=== PATIENT | male | born 1950 | race Caucasian/White ===

== ENCOUNTER 2022-04-26 20:14 | Inpatient (IN) | payer MEDICARE ==
[~2022-04-26] VITALS: Ht 180.3 cm; Wt 94.3 kg
[2022-04-27] VITALS (11 sets, daily range): BP systolic 100–154; BP diastolic 59–96; PULSE 44–84; TEMP 97.7–99
[2022-04-27] MEDS ORDERED: LASIX 20MG TABL20 MG PO (03:13)
[2022-04-27] MEDS ORDERED: CIALIS10 MG PO (03:14)
[2022-04-27] MEDS ORDERED: ATARAX50 MG PO (03:15)
--- NOTE | 2022-04-27 03:15 | NUR ---
PT ADMITTED TO ROOM 343 BY [facility]. PT A&OX4. AND DAUGHTER ARE AT SIDE. VERY SUPPORTIVE. WILL STAY WITH PT TONIGHT. ADMISSION ASSESSMENTS COMPLETED. NPO STATUS. SABINA MAURER HERE. SEE NEW ORDEERS. REVIEWED PLAN OF CARE. PT/ FFAMILY VERBALIZE UNDERSTANDING.
[2022-04-27] MEDS ORDERED: ZOFRAN 4MG T4 MG/TAB PO (03:16)
[2022-04-27] MEDS ORDERED: TOPROL XL 50MG50 MG PO (03:16)
[2022-04-27] MEDS ORDERED: MULTI VITAMINS1 TAB PO (03:16)
[2022-04-27] MEDS ORDERED: SENNA-S 50 MG-81 TAB PO (03:17)
[2022-04-27] MEDS ORDERED: PRILOSEC 20MG20 MG PO (03:17)
[2022-04-27] MEDS ORDERED: ALDACTONE50 MG PO (03:19)
--- NOTE | 2022-04-27 03:50 | NUR ---
NOTIFIED AALLISON ERASTO OF EKG RESUULTS AAFIB. NEW ORDERS NOTED. BANANA BAG 1000CC STARTED SABINA CHAGES DOSE FROM 125CC/HR TO 60CC/HR.
--- NOTE | 2022-04-27 03:50 | NUR ---
INSERTED #[id number] ÁLVAREZ WITH IMMEDIATE RETURN OF JAMAL CLEAR URINE. UA SENT TO LAB.
--- NOTE | 2022-04-27 04:02 | NUR ---
PT FELL ASLEEP. NO DISTRESS. CALL LIGHTT IN REACH. BED ALARRM SET.
[2022-04-27 05:03] LABS: SQUAMOUS EPITHELIAL None Seen /hpf (0-10); URINE BACTERIA None Seen /hpf (NONE SEEN); URINE RBC 0-2 /hpf (0-2)
[2022-04-27 05:06] LABS: COLLECTION METHOD CATHETER; URINE APPEARANCE Hazy (CLEAR/HAZY); URINE BLOOD TRACE-INTACT (NEGATIVE); URINE COLOR Amber (YELLOW); URINE GLUCOSE Negative (NEGATIVE); URINE KETONE Negative (NEGATIVE); URINE NITRATE Negative (NEGATIVE); URINE PROTEIN(semi-quant) Negative (NEGATIVE); URINE UROBILINOGEN 0.2 E.U/dL (0.2-1.0)
[2022-04-27 05:10] LABS: TRICYCLIC ANTIDEPRESS URINE NEGATIVE
--- NOTE | 2022-04-27 06:15 | NUR ---
PT RESTING AT THIS TIME. NO DISTRESS. BANANA BAG CONTINUES AT 60CC/HR THEN WILL HANG D51/2NS AT 50CC PER SABINA MAURER.
[2022-04-27 06:31] LABS: BASO % 0.5 % (0.0-2.0); EOS # 0.1 K/mm3 (0.0-0.7); EOS % 0.9 % (0.0-4.0); GRAN % 75.7 % (42.2-75.2); HEMOGLOBIN 14.3 g/dl (13.5-18.0); LYMPH # 1.1 K/mm3 (1.2-3.4); MEAN CELL VOLUME 100 fl (80.0-100.0); MEAN CORPUSCULAR HEMOGLOBIN 34 pg (27-31); MEAN CORPUSCULAR HGB CONC 34 g/dl (33.0-37.0); MEAN PLATELET VOLUME 10.5 fl (7.4-10.4); MONO # 0.7 K/mm3 (0.1-0.6); MONO % 8.3 % (1.7-9.3); PLATELET COUNT 106 K/mm3 (130-400); RED BLOOD COUNT 4.22 M/mm3 (4.20-5.60)
[2022-04-27 06:45] LABS: INR 1.4 (0.8-3.0); PROTHROMBIN TIME 16.3 SECONDS (9.7-12.8)
[2022-04-27 06:50] LABS: ALBUMIN 3.2 gm/dL (3.4-4.8); BILIRUBIN,TOTAL 4.5 mg/dL (0.2-1.2); CREATININE, serum 1.12 mg/dL (0.72-1.25); MAGNESIUM 1.8 mg/dL (1.6-2.6); POTASSIUM 4.1 mmol/L (3.5-4.5); TOTAL PROTEIN 7.8 gm/dL (6.2-8.1)
--- NOTE | 2022-04-27 09:32 | NUR ---
Pt assessment complete. Pt is laying in bed, he is A/O x4. His breathing is even and unlabored on RA. Pt denies SOB. Pain to R thigh 10/15, prn pain medication administered. Offered patient ice to which he refused. No N/V. Denies hallucinations. IVF infusing without issues. No needs at this time.
--- NOTE | 2022-04-27 12:42 | NUR ---
Initial visit: Pt was resting and content. Pt stated no needs right now. General Sales Manager will follow up as needed.
--- NOTE | 2022-04-27 15:26 | NUR ---
Patient was admitted to the Surgical unit on 05-25-22. Claims Analyst met with patient and his in his room to conduct Care Managment intake and discuss discharge planning. Patient reports that he lives in [place], [place] with his . Patient denies the use of O2 and DME prior to this injury. Patient's PCP is Dr. Vargas in [place], [place]. Patient has RODRIGUEZ. Patient does not have AD at this time. AD paperwork was provided to Patient. SW discussed the potential need for rehab services after discharge. Patient reports that he wants to go through outpatient rehab if it is needed post surgery.
--- NOTE | 2022-04-27 18:52 | NUR ---
Pt had an uneventful day. Intermittent pain, PRN pain medications administered. Pt repositioned to comfortable positions. Gita DD. Not scoring on CIWA. at bedside. Call light within reach.
--- NOTE | 2022-04-27 20:55 | NUR ---
Patient assessed around 2054, head to toe assessment done, see shift assesment, reports pain to his right hip, rated it as 7/10, PRN pain med given, at bedside, denies hallucination, denies further needs, call light and personal items within reach, will continue to monitor.
[2022-04-28] VITALS (18 sets, daily range): BP systolic 95–132; BP diastolic 51–86; PULSE 55–96; TEMP 97.5–98.8
--- NOTE | 2022-04-28 06:26 | NUR ---
Patient had an uneventful night, stayed overnight, will report off to dayshift nurse.
--- NOTE | 2022-04-28 08:00 | NUR ---
PATIENT IS A&O. NOTED IRREGULAR IN THE 60'S ON TELE. SOFT B/P IN THE 90'S & LOW 100'S SYSTOLIC. B/P MEDS HELD. ALL OTHER VSS. PATIENT ON DETOX PROTOCOL DUE TO HX OF ETOH BUT IS NOT CURRENTLY SCORING. PATIENT ALSO HAS HX OF DRUGS, LIVER CIRRHOSIS, PARACENTESIS, A-FIB, DVT & VARICES. NO COMPLAINTS THIS AM. AT BEDSIDE. HEAD TO TOE ASSESSMENT COMPLETE. NPO FOR SURGERY. PATIENT AND WANTING TO TALK TO SURGEON AND WILL SIGN THE CONSENT AFTER TALKING WITH HER. IV FLUIDS INFUSING VIA PUMP INTO LEFT FORARM. ÁLVAREZ TO DD. TEDS AND SCD'S TO RLE. NO OTHER NEEDS AT THIS TIME. CALL LIGHT IN REACH. SURGERY PENDING.
[2022-04-28 09:07] LABS: BASO % 0.4 % (0.0-2.0); EOS # 0.2 K/mm3 (0.0-0.7); GRAN # 7.1 K/mm3 (1.4-6.5); GRAN % 70.4 % (42.2-75.2); HEMATOCRIT 40.5 % (42.0-52.0); HEMOGLOBIN 14.1 g/dl (13.5-18.0); LYMPH # 1.8 K/mm3 (1.2-3.4); LYMPH % 18.1 % (20.0-51.0); MEAN CELL VOLUME 98 fl (80.0-100.0); MEAN CORPUSCULAR HEMOGLOBIN 34 pg (27-31); MEAN CORPUSCULAR HGB CONC 35 g/dl (33.0-37.0); MEAN PLATELET VOLUME 10.2 fl (7.4-10.4); MONO # 0.9 K/mm3 (0.1-0.6); MONO % 8.7 % (1.7-9.3); PLATELET COUNT 114 K/mm3 (130-400); RED BLOOD COUNT 4.13 M/mm3 (4.20-5.60); REDCELL DISTRIBUTION WIDTH-CV 13.2 % (11.5-14.5)
[2022-04-28 09:24] LABS: CALCIUM 8.5 mg/dL (8.4-10.2); CREATININE, serum 1.1 mg/dL (0.72-1.25); POTASSIUM 4.1 mmol/L (3.5-4.5)
[2022-04-28 10:50] LABS: INR 1.4 (0.8-3.0); PROTHROMBIN TIME 16.6 SECONDS (9.7-12.8)
--- NOTE | 2022-04-28 14:30 | NUR ---
PATIENT GOING DOWN TO OR VIA BED. IV FLUIDS VIA GRAVITY. CONSENT ON CHART. PATIENT OFF FLOOR.
--- NOTE | 2022-04-28 20:00 | NUR ---
Patient arrived to the floor at 1920 with PACU nurse Shi, IV to left forearm infusing well, on 2liters of oxygen via nasal prong, dressing to right hip CDI, with abduction pillows in between legs, SCD's on, at bedside, tolerated his clear liquid and he ate jello, denies nausea or vomiting, call light and personal items within reach, will continue to monitor.
--- NOTE | 2022-04-28 23:00 | NUR ---
Patient called out with c/o of right heel pain, repositioned patient at this time and felt relief, denies further needs at this time, at bedside, INT IV at this time, encouraged oral fluids, will continue to monitor.
[2022-04-29] VITALS (11 sets, daily range): BP systolic 105–142; BP diastolic 55–86; PULSE 63–81; TEMP 97.6–98.4
--- NOTE | 2022-04-29 03:29 | NUR ---
Patient reports pain to his right hip, rated it at 7/10, IV morphine given per request, FLORIDALMA's and MARISA's on, ice pack on, will continue to monitor.
--- NOTE | 2022-04-29 04:59 | NUR ---
Patient resting in bed, eyes closed, respirations even and unlabored, looks comfortable.
[2022-04-29 06:32] LABS: BASO % 0.3 % (0.0-2.0); GRAN # 6.3 K/mm3 (1.4-6.5); GRAN % 80.1 % (42.2-75.2); HEMOGLOBIN 12.9 g/dl (13.5-18.0); LYMPH % 12.8 % (20.0-51.0); MEAN CELL VOLUME 98 fl (80.0-100.0); MEAN CORPUSCULAR HEMOGLOBIN 34 pg (27-31); MEAN CORPUSCULAR HGB CONC 35 g/dl (33.0-37.0); MEAN PLATELET VOLUME 11.1 fl (7.4-10.4); MONO # 0.5 K/mm3 (0.1-0.6); MONO % 6.4 % (1.7-9.3); PLATELET COUNT 103 K/mm3 (130-400); RED BLOOD COUNT 3.76 M/mm3 (4.20-5.60); REDCELL DISTRIBUTION WIDTH-CV 12.8 % (11.5-14.5)
[2022-04-29 06:36] LABS: HEMATOCRIT 36.9 % (42.0-52.0)
[2022-04-29 06:42] LABS: INR 1.5 (0.8-3.0); PROTHROMBIN TIME 17.4 SECONDS (9.7-12.8)
[2022-04-29 06:58] LABS: ALBUMIN 2.7 gm/dL (3.4-4.8); BILIRUBIN,TOTAL 4.5 mg/dL (0.2-1.2); CALCIUM 8.8 mg/dL (8.4-10.2); CREATININE, serum 1.12 mg/dL (0.72-1.25); MAGNESIUM 1.7 mg/dL (1.6-2.6); POTASSIUM 4.4 mmol/L (3.5-4.5); TOTAL PROTEIN 7.2 gm/dL (6.2-8.1)
--- NOTE | 2022-04-29 10:35 | NUR ---
PATIENT ALERT AND ORIENTED X4. VSS. PATIENT HERE FOR RIGHT HIP HEMIARTHROPLASTY. AQUACELL TO RIGHT HIP, CDI. PATIENT WBAT TO RIGHT. CIWA PROTOCOL, PATIENT SCORING 0. CALL LIGHT WITHIN REACH.
--- NOTE | 2022-04-29 14:09 | NUR ---
PT recommends SNF. OT recommends post-acute rehab vs home with family assist. SIA met with the patient and his , Laura, to discuss therapy's recommendations. The patient and his state that they have already made alternate arrangements. He states that they live across from [facility] in [place] and the facility provides outpatient therapy. He states that he received outpatient therapy there in the past, after knee surgery. Laura confirms this plan and states that she will contact the facility to set up the appointments. SIA inquired if they have a FWW. The patient and Laura report that they do not. They would like to go ahead and order one through insurance and are okay with getting one from [facility]. SIA contacted and faxed the FWW order to Sean at [facility]. Awaiting delivery of FWW. *Discharge plan: home with and outpatient therapy*
--- NOTE | 2022-04-29 20:23 | NUR ---
Patient doing better, A/O, rates his pain at 2/10, IV to left forearm infusing well, still with weinstein catheter draining well, aquacell dressing to right hip CDI, SCD's and MARISA's on, denies further needs, call light and personal items within reach, will continue to monitor.
[2022-04-30 02:05] VITALS: BP 120/70; PULSE 70
[2022-04-30 03:57] VITALS: BP 121/73; PULSE 56; TEMP 98
[2022-04-30 05:47] VITALS: BP 138/65; PULSE 99
--- NOTE | 2022-04-30 06:32 | NUR ---
Patient had an uneventful night, stayed overnight, had a bm this morning.
[2022-04-30 06:51] LABS: BASO % 0.1 % (0.0-2.0); EOS % 0.4 % (0.0-4.0); GRAN # 8.1 K/mm3 (1.4-6.5); GRAN % 77.4 % (42.2-75.2); HEMOGLOBIN 12.6 g/dl (13.5-18.0); LYMPH # 1.4 K/mm3 (1.2-3.4); LYMPH % 13.4 % (20.0-51.0); MEAN CELL VOLUME 97 fl (80.0-100.0); MEAN CORPUSCULAR HEMOGLOBIN 34 pg (27-31); MEAN CORPUSCULAR HGB CONC 35 g/dl (33.0-37.0); MEAN PLATELET VOLUME 10.4 fl (7.4-10.4); MONO # 0.8 K/mm3 (0.1-0.6); MONO % 8.1 % (1.7-9.3); PLATELET COUNT 135 K/mm3 (130-400); RED BLOOD COUNT 3.73 M/mm3 (4.20-5.60); REDCELL DISTRIBUTION WIDTH-CV 12.9 % (11.5-14.5)
[2022-04-30 06:53] LABS: HEMATOCRIT 36.3 % (42.0-52.0)
[2022-04-30 07:13] LABS: CALCIUM 8.7 mg/dL (8.4-10.2); CREATININE, serum 1.01 mg/dL (0.72-1.25); POTASSIUM 4.3 mmol/L (3.5-4.5)
[2022-04-30 07:50] VITALS: BP 103/74; PULSE 59; TEMP 97.8
--- NOTE | 2022-04-30 08:00 | NUR ---
Pt doing okay this morning. Some pain, but reports it is tolerable. Pt hoping to get to go home today. Pts is at bedside. Pt is doing well with ambulating with walker, standby assist.
[2022-04-30] MEDS ORDERED: OSCAL 500 TAB500 MG PO (09:08)
[2022-04-30] MEDS ORDERED: ASPIRIN 81M81 MG/TA2 PO (09:08)
[2022-04-30] MEDS ORDERED: ROXICODONE 55 MG/TAB PO (09:08)
[2022-04-30] MEDS ORDERED: TOPROL XL 25MG25 MG PO (09:09)
[2022-04-30] MEDS ORDERED: FOLIC ACID 11 MG/TA1 PO (09:09)
[2022-04-30] MEDS ORDERED: THIAMINE 1100 MG/TAB PO (09:09)
[2022-04-30] MEDS ORDERED: VITAMIN C500 MG PO (09:09)
[2022-04-30 10:30] VITALS: BP 142/79; PULSE 74; TEMP 98.2
--- NOTE | 2022-04-30 11:36 | NUR ---
[facility] delivered the FWW to the patient's room. The patient is to discharge back home with his today, 04/30, and outpatient therapy at [facility] in [place]. SIA met with the patiet and his and presented and read the IM form outloud to them. The patient verbalized understanding and agreement to discharge today. He signed the form and declined a copy. No additional needs at this time.
[2022-04-30 12:42] VITALS: BP 120/72; PULSE 54; TEMP 97.7
--- NOTE | 2022-04-30 13:15 | NUR ---
Reviewed discharge instructions with pt and spouse. Reviewed new medications and follow up appointment. They prefer to come back to [place] for follow up ortho appointment. INT removed and pt escorted out
== END 2022-04-30 13:15 | disposition home or self-care (01) | DRG 522 ==
LOC: MEDICAL 20:14 → SURG 04-27 02:51
PROVIDERS: Internal Medicine; Nurse Practitioner Family; Orthopaedic Surgery; Physician Assistant; ADMIT Internal Medicine
PROC: 0SRR0J9 Replacement of Right Hip Joint, Femoral Surface with Synthetic Substitute, Cemented, Open Approach (ICD-10-PCS; principal; 2022-04-28 14:00)
DX: S72.001A Fracture of unspecified part of neck of right femur, initial encounter for closed fracture (principal); N17.9 Acute kidney failure, unspecified; E87.1 Hypo-osmolality and hyponatremia; E87.20 Acidosis, unspecified; I85.00 Esophageal varices without bleeding; F10.10 Alcohol abuse, uncomplicated; K74.60 Unspecified cirrhosis of liver; W18.39XA Other fall on same level, initial encounter; F12.90 Cannabis use, unspecified, uncomplicated; I48.91 Unspecified atrial fibrillation; D69.6 Thrombocytopenia, unspecified; Z96.659 Presence of unspecified artificial knee joint; Z96.651 Presence of right artificial knee joint; T50.0X5A Adverse effect of mineralocorticoids and their antagonists, initial encounter; T50.1X5A Adverse effect of loop [high-ceiling] diuretics, initial encounter; I12.9 Hypertensive chronic kidney disease with stage 1 through stage 4 chronic kidney disease, or unspecified chronic kidney disease; N18.9 Chronic kidney disease, unspecified; F41.9 Anxiety disorder, unspecified; I35.1 Nonrheumatic aortic (valve) insufficiency; K21.9 Gastro-esophageal reflux disease without esophagitis; Y93.89 Activity, other specified; Y92.89 Other specified places as the place of occurrence of the external cause; Z86.718 Personal history of other venous thrombosis and embolism; Z91.048 Other nonmedicinal substance allergy status
CPT/HCPCS: A9284; C1713; C1776; C9113; J0690; J1100; J1170; J2250; J2270; J2405; J2704; J2795; J3010; J3411; J7030; J7120